=== PATIENT | male | born 2000 | race Caucasian/White ===

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

== ENCOUNTER 2024-06-15 10:50 | Emergency (ER) | payer BC, OTHER ==
[2024-06-15 10:56] VITALS: BP 110/96; PULSE 111; RESP 16; TEMP 98.5; BMI 27.3
[2024-06-15] MEDS ORDERED: ONDANSETRON *ODT* 4 MG TABLET ONE (11:03)
[2024-06-15] MEDS: ONDANSETRON *ODT* 4 MG TABLET SL ONE (11:14)
[2024-06-15 13:13] LABS: HIV INTERPRETATION NEGATIVE (NEGATIVE)
== END 2024-06-15 13:19 | disposition home or self-care (01) ==
LOC: FER 10:50
DX: A08.4 Viral intestinal infection, unspecified (principal); R11.0 Nausea; R50.9 Fever, unspecified; R19.7 Diarrhea, unspecified; Z20.822 Contact with and (suspected) exposure to COVID-19
CPT/HCPCS: 0241U-QW; 36415; 86803; 87389; 99283-25; Q0162